=== PATIENT | male | born 1980 | race African-American/Black ===

== ENCOUNTER 2019-02-07 17:18 | Emergency (ER) | payer OTHER ==
[~2019-02-07] VITALS: Ht 172.7 cm; Wt 84.1 kg
[2019-02-07] MEDS ORDERED: METH4PACK PO (19:21)
[2019-02-07] MEDS ORDERED: KETOROLAC 60 MG/2 ML VIAL (J1885) IM ONE (19:30)
[2019-02-07 19:46] VITALS: BP 113/87
[2019-02-07] MEDS ORDERED: IBUP80TA PO (20:03)
== END 2019-02-07 20:12 | disposition home or self-care (01) ==
LOC: M ED 17:18
DX: M54.31 Sciatica, right side (principal); F90.9 Attention-deficit hyperactivity disorder, unspecified type; F17.200 Nicotine dependence, unspecified, uncomplicated; Z79.899 Other long term (current) drug therapy
CPT/HCPCS: 96372; 99283; J1885